=== PATIENT | male | born 1985 | race Caucasian/White ===

== ENCOUNTER 2020-10-26 16:04 | Emergency (ER) | payer OTHER ==
[2020-10-26 16:16] VITALS: RESP 18; TEMP 98
[2020-10-26] MEDS ORDERED: LORazepam 2 MG/ML INJ IM STA (16:36)
--- NOTE | 2020-10-26 16:42 | ED ---
General Adult HPI - General Chief complaint: Psychiatric Symptoms Stated complaint: mental health Time Seen by Provider: 10/26/20 16:17 Source: patient Mode of arrival: ambulatory Limitations: no limitations - History of Present Illness Initial comments: 25-year-old male presents to the emergency room for a chief complaint of "psychotic break". Patient is feeling that he is having a psychotic break. Mother reports that he has had a lot going on for him between losing his job, losing his house, and getting from his . He apparently went on a trip with his stepfather that caused him to have a psychotic break. Mother reports he has threatened to harm himself. Patient is denying any of these thoughts today. Patient denies any suicidal or homicidal thoughts at the time.Patient has no other complaints at this time including shortness of breath, chest pain, abdominal pain, nausea or vomiting, headache, or visual changes. - Related Data Previous Rx's Medication Instructions Recorded LORazepam [Ativan] 1 mg PO DAILY PRN 2 Days #2 tab 10/26/20 Allergies Allergy/AdvReac Type Severity Reaction Status Date / Time No Known Allergies Allergy Verified 10/26/20 16:16 Review of Systems ROS Statement: Those systems with pertinent positive or pertinent negative responses have been documented in the HPI. ROS Other: All systems not noted in ROS Statement are negative. Past Medical History Past Medical History: Asthma Additional Past Medical History / Comment(s): TBI History of Any Multi-Drug Resistant Organisms: None Reported Past Surgical History: No Surgical Hx Reported, Tonsillectomy Past Psychological History: Anxiety, Depression Smoking Status: Current every day smoker Past Alcohol Use History: Occasional Past Drug Use History: Marijuana General Exam Limitations: no limitations General appearance: anxious Head exam: Present: atraumatic, normocephalic, normal inspection Eye exam: Present: normal appearance, PERRL, EOMI. Absent: scleral icterus, conjunctival injection, periorbital swelling ENT exam: Present: normal exam, mucous membranes moist Neck exam: Present: normal inspection, full ROM. Absent: tenderness, meningismus, lymphadenopathy Respiratory exam: Present: normal lung sounds bilaterally. Absent: respiratory distress, wheezes, rales, rhonchi, stridor Cardiovascular Exam: Present: regular rate, normal rhythm, normal heart sounds. Absent: systolic murmur, diastolic murmur, rubs, gallop, clicks Course Vital Signs 10/26/20 16:07 Temperature 98 F Pulse Rate 96 Respiratory 18 Rate Blood Pressure 149/88 O2 Sat by Pulse 98 Oximetry Medical Decision Making - Medical Decision Making Vitals are stable. Patient is well appearing although anxious on presentation. Denying any suicidal or homicidal thoughts. Patient was seen by emergency psychiatric services. It at this and they feel patient is safe for outpatient follow-up as mother is very helpful and supportive to patient. They will be getting him in to [facility]. They will be calling the crisis line tomorrow and [facility] will be made aware by EPS. I will give patient 2 Ativan pills when necessary for anxiety. He will return here for any worsening symptoms. - Lab Data Lab Results 10/26/20 Range/Units 16:59 Urine Opiates Screen Not Detected (NotDetected) Ur Oxycodone Screen Not Detected (NotDetected) Urine Methadone Screen Not Detected (NotDetected) Ur Propoxyphene Screen Not Detected (NotDetected) Ur Barbiturates Screen Not Detected (NotDetected) U Tricyclic Antidepress Not Detected (NotDetected) Ur Phencyclidine Scrn Not Detected (NotDetected) Ur Amphetamines Screen Not Detected (NotDetected) U Methamphetamines Scrn Not Detected (NotDetected) U Benzodiazepines Scrn Not Detected (NotDetected) Urine Cocaine Screen Not Detected (NotDetected) U Marijuana (THC) Screen Detected H (NotDetected) Disposition Clinical Impression: Adjustment reaction Disposition: HOME SELF-CARE Condition: Good Instructions (If sedation given, give patient instructions): Depression (ED), Suicide Prevention (ED) Additional Instructions: Please call [facility] crisis line tomorrow. Please follow up closely with [facility]. If patient has any worsening symptoms return to the emergency room. Prescriptions: LORazepam [Ativan] 1 mg PO DAILY PRN 2 Days #2 tab PRN Reason: Anxiety Is patient prescribed a controlled substance at d/c from ED?: No Referrals: Nonstaff,Physician [Primary Care Provider] - 1-2 days Time of Disposition: 18:22
[2020-10-26 17:23] LABS: Amphetamine Screen,Urine Not Detected (NotDetected); Benzodiazepines Screen,Urine Not Detected (NotDetected); Cocaine Screen,Urine Not Detected (NotDetected); Methadone Screen, Urine Not Detected (NotDetected); Opiate Screen,Urine Not Detected (NotDetected); Phencyclidine Screen,Urine Not Detected (NotDetected); Tricyclic Antidepressant,Urine Not Detected (NotDetected); Urn Cannabinoid Scrn Detected (NotDetected)
[2020-10-26 17:24] LABS: Barbiturate Screen,Urine Not Detected (NotDetected); Oxycodone Screen, Urine Not Detected (NotDetected)
[2020-10-26] MEDS ORDERED: LORazepam 1 MG TAB PO STA (18:23)
[2020-10-26 18:35] VITALS: BP 130/88; PULSE 88
== END 2020-10-26 18:35 | disposition home or self-care (01) ==
LOC: EDBD → EC 16:04
DX: F43.22 Adjustment disorder with anxiety (principal); J45.909 Unspecified asthma, uncomplicated; F17.200 Nicotine dependence, unspecified, uncomplicated
CPT/HCPCS: 82075; 80306; 99284; 96372; J2060

== ENCOUNTER 2020-11-04 15:57 | Inpatient (IN) | payer MEDICAID, OTHER ==
--- NOTE | 2020-11-04 17:54 | ED ---
General Adult HPI - General Chief complaint: Psychiatric Symptoms Stated complaint: EPS eval Time Seen by Provider: 11/04/20 16:00 Source: patient, family, EMS, RN notes reviewed, old records reviewed Mode of arrival: EMS Limitations: no limitations - History of Present Illness Initial comments: This is a 35-year-old male who is been petition by his mother because he has been acting extremely paranoid making claims that aren't true and constantly telling people he is going to commit suicide. Patient sent his mother picture of a gun that he is going to use. Patient currently denies this and states she doesn't have any idea why she is here. According to the petition patient is drinking more has been more paranoid and continues to tell everyone that he is suicidal. - Related Data Home Medications Medication Instructions Recorded Confirmed busPIRone HCL [Buspar] 7.5 mg PO HS 11/04/20 11/05/20 traZODone HCL [Desyrel] 100 mg PO HS 11/04/20 11/05/20 Allergies Allergy/AdvReac Type Severity Reaction Status Date / Time No Known Allergies Allergy Verified 11/05/20 05:11 Review of Systems ROS Statement: Those systems with pertinent positive or pertinent negative responses have been documented in the HPI. ROS Other: All systems not noted in ROS Statement are negative. Past Medical History Past Medical History: Asthma Additional Past Medical History / Comment(s): TBI History of Any Multi-Drug Resistant Organisms: None Reported Past Surgical History: No Surgical Hx Reported, Tonsillectomy Past Psychological History: Anxiety, Depression Smoking Status: Current every day smoker Past Alcohol Use History: Occasional Past Drug Use History: Marijuana General Exam - General Exam Comments Initial Comments: GENERAL: Patient is well-developed and well-nourished. Patient is nontoxic and well- hydrated and is in no acute distress. ENT: Neck is soft and supple. No significant lymphadenopathy is noted. Oropharynx is clear. Moist mucous membranes. Neck has full range of motion without eliciting any pain.were felt. EYES: The sclera were anicteric and conjunctiva were pink and moist. Extraocular movements were intact and pupils were equal round and reactive to light. Eyelids were unremarkable. PULMONARY: Unlabored respirations. Good breath sounds bilaterally. No audible rales rhonchi or wheezing was noted. CARDIOVASCULAR: There is a regular rate and rhythm without any murmurs gallops or rubs. ABDOMEN: Soft and nontender with normal bowel sounds. SKIN: Skin is clear with no lesions or rashes and otherwise unremarkable. NEUROLOGIC: Patient is alert and oriented x3. Cranial nerves II through XII are grossly intact. Motor and sensory are also intact. Normal speech, volume and content. Symmetrical smile. MUSCULOSKELETAL: Normal extremities with adequate strength and full range of motion. LYMPHATICS: No significant lymphadenopathy is noted PSYCHIATRIC: Patient denies any suicidal ideations. Patient denies any when he is suicidal. 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 Glover taking over the care of this patient at 9 - Lab Data Result diagrams: 11/06/20 08:44 11/06/20 08:44 Lab Results 11/04/20 11/05/20 Range/Units 19:43 01:34 Urine Opiates Screen Not Detected (NotDetected) Ur Oxycodone Screen Not Detected (NotDetected) Urine Methadone Screen Not Detected (NotDetected) Ur Propoxyphene Screen Not Detected (NotDetected) Ur Barbiturates Screen Not Detected (NotDetected) U Tricyclic Antidepress Not Detected (NotDetected) Ur Phencyclidine Scrn Not Detected (NotDetected) Ur Amphetamines Screen Not Detected (NotDetected) U Methamphetamines Scrn Not Detected (NotDetected) U Benzodiazepines Scrn Not Detected (NotDetected) Urine Cocaine Screen Not Detected (NotDetected) U Marijuana (THC) Screen Detected H (NotDetected) Coronavirus (PCR) Not Detected (Not Detectd) Disposition Clinical Impression: Psychosis Disposition: ADMITTED IP TO THIS HOSP
[2020-11-04] MEDS ORDERED: NICOTINE 21MG/24HR PATCH TRANSDERM STA (18:12)
[2020-11-04 20:06] LABS: Amphetamine Screen,Urine Not Detected (NotDetected); Barbiturate Screen,Urine Not Detected (NotDetected); Benzodiazepines Screen,Urine Not Detected (NotDetected); Cocaine Screen,Urine Not Detected (NotDetected); Methadone Screen, Urine Not Detected (NotDetected); Opiate Screen,Urine Not Detected (NotDetected); Oxycodone Screen, Urine Not Detected (NotDetected); Phencyclidine Screen,Urine Not Detected (NotDetected); Tricyclic Antidepressant,Urine Not Detected (NotDetected); Urn Cannabinoid Scrn Detected (NotDetected)
[2020-11-05] MEDS ORDERED: MAGNESIUM HYDROXIDE 2,400 MG/10 ML CUP PO PRN (04:19)
[2020-11-05] MEDS ORDERED: MAG HYDROX/AL HYDROX/SIMETH 30 ML CUP PO PRN (04:19)
[2020-11-05] MEDS ORDERED: ACETAMINOPHEN TAB 325 MG TAB PO PRN (04:19)
[2020-11-05] MEDS ORDERED: LORazepam 2 MG/ML INJ IM PRN (04:22)
[2020-11-05] MEDS ORDERED: HALOPERIDOL LACTATE 5 MG/ML 1 ML VIAL IM PRN (04:23)
[2020-11-05] MEDS: LORazepam 1 MG TAB PO PRN ×2 (04:34→13:24)
[2020-11-05] MEDS: NICOTINE 21MG/24HR PATCH TRANSDERM SCH (09:39)
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
[2020-11-05] MEDS: NICOTINE POLACRILEX 2 MG GUM BUCCAL PRN ×2 (13:49→18:24)
[2020-11-05] MEDS: LITHIUM CARBONATE 300 MG CAP PO SCH (20:33)
[2020-11-05] MEDS: traZODone HCL 100 MG TAB PO SCH (20:33)
[2020-11-05] MEDS: busPIRone HCl 5 MG TAB PO SCH (20:33)
[2020-11-05] MEDS ORDERED: busPIRone HCl 5 MG TAB PO SCH (21:00)
[2020-11-06] MEDS: busPIRone HCl 5 MG TAB PO SCH ×2 (08:15→19:36)
[2020-11-06] MEDS: NICOTINE 21MG/24HR PATCH TRANSDERM SCH (08:16)
[2020-11-06] MEDS: LITHIUM CARBONATE 300 MG CAP PO SCH (08:16)
[2020-11-06] MEDS: NICOTINE POLACRILEX 2 MG GUM BUCCAL PRN ×2 (08:18→11:22)
[2020-11-06 09:26] LABS: Basophils # (A) 0.1 k/uL (0-0.2); Basophils % (A) 1 %; Eosinophils # (A) 0.2 k/uL (0-0.7); Eosinophils % (A) 2 %; HCT 54.4 % (39.0-53.0); HGB 18.3 gm/dL (13.0-17.5); Lymphocytes # (A) 1.5 k/uL (1.0-4.8); Lymphocytes % (A) 20 %; MCH 33.7 pg (25.0-35.0); MCHC 33.7 g/dL (31.0-37.0); MCV 100.1 fL (80.0-100.0); Macrocytosis Slight; Mean Platelet Volume 7.4; Monocytes # (A) 0.4 k/uL (0-1.0); Monocytes % (A) 5 %; Neutrophils # (A) 5.2 k/uL (1.3-7.7); Neutrophils % (A) 70 %; Platelet Count 213 k/uL (150-450); RBC 5.43 m/uL (4.30-5.90); RDW 14.6 % (11.5-15.5); WBC 7.4 k/uL (3.8-10.6)
[2020-11-06 09:43] LABS: ALT 24 U/L (4-49); AST 37 U/L (17-59); African American GFR (CKD) >90 (>60 ml/min/1.73 sqM); Albumin 3.9 g/dL (3.5-5.0); Alkaline Phosphatase 77 U/L (38-126); Anion Gap 6 mmol/L; Blood Urea Nitrogen 6 mg/dL (9-20); Carbon Dioxide 30 mmol/L (22-30); Chloride 103 mmol/L (98-107); Glucose 105 mg/dL (74-99); Non-African American GFR(CKD) >90 (>60 ml/min/1.73 sqM); Potassium 3.6 mmol/L (3.5-5.1); Sodium 139 mmol/L (137-145); Total Bilirubin 2.1 mg/dL (0.2-1.3); Total Protein 6.6 g/dL (6.3-8.2)
[2020-11-06] MEDS: LORazepam 1 MG TAB PO PRN ×2 (11:22→23:24)
[2020-11-06] MEDS ORDERED: ARIPiprazole 5 MG TAB PO STA (11:22)
--- NOTE | 2020-11-06 11:37 | P.PN ---
Progress Note - Text Progress Note Date: 11/06/20 Interval History: Patient was seen wandering the hallways and was directable and agreeable to speak with sba underwriter in the office. The patient continues to express that he does not need to be admitted to an inpatient psychiatric unit and that this appears to be an excessive response to his actions. Collateral information was obtained by the patient's mother reports that the patient has had a pattern of behavior ever since the start of the pandemic where he experienced much more mood swings, irritability, and verbalized threats to harm himself or others. The patient when confronted with this information. He denies that he had any intention to do so and that he was only saying these things as a reaction to how his mother and his were treating him. Currently, the patient is denying any suicidal or homicidal ideation, intention, and/or plan. He is not reporting any auditory or visual hallucinations. He is denying any paranoia or delusions. Patient reports that he was able to sleep well last night. He denies any issues with his appetite. He remains fixated on discharge. The patient states that he has to be at work on Tuesday because if not, he will loose his job and become homeless. Throughout the interview, the patient continually expresses that he needs to be discharged as he feels like he is no longer an imminent risk of harm to self or others. Mental Status Exam: General Appearance: Patient appears to be stated age is alert, directable, and cooperative. Unkempt and disheveled hair. Normal build. Behavior: Patient is calmly seated without any agitated behavior. Psychomotor activity is elevated. Eye contact is appropriate. Speech: Patient's speech is hyperverbal, rapid at times, circumstantial. Mood/Affect: Mood is "feeling ready to go," affect is expansive, irritable, and intense. Suicidality/Homicidality: Patient denies any suicidal or homicidal ideation, intention, and/or plan. Perceptions: The patient denies any auditory or visual hallucinations. Though content/process: There is no evidence of any delusional thought content and thought process is linear and goal-directed. Memory and concentration: AOX3, grossly intact for the purposes of this session Judgment and insight: Improving mildly Vital Signs Temp 98.9 F 11/05/20 04:00 Pulse 99 11/05/20 04:00 Resp 18 11/05/20 04:00 BP 145/101 11/05/20 04:00 Pulse Ox 98 11/05/20 04:00 Assessment Bipolar disorder, unspecified, depressed episode Alcohol use disorder Nicotine dependence Plan: -Patient continues to meet criteria for inpatient psychiatric admission for symptom stabilization and safety. Patient has signed adult voluntary form. Consider petition and certification if the patient is nonadherent with treatment or files 72 hour notice at this time. -Medications: Increase lithium to 450 mg by mouth twice a day for mood stabilization Continue BuSpar 7.5 mg by mouth twice a day for anxiety Continue trazodone 100 mg by mouth at bedtime for depression/insomnia Start Abilify 5 mg by mouth daily for mood stabilization -When necessary Ativan and Geodon for agitation/aggression. -NRT - nicotine patch -SW on board for discharge planning. Encouraged the patient to participate in milieu.
[2020-11-06 17:56] LABS: Hemoglobin A1C 4.8 % (4.0-6.0)
[2020-11-06] MEDS: traZODone HCL 100 MG TAB PO SCH (19:37)
[2020-11-06] MEDS: LITHIUM CARBONATE 150 MG CAP PO SCH (19:37)
[2020-11-07] MEDS: NICOTINE 21MG/24HR PATCH TRANSDERM SCH (08:28)
[2020-11-07] MEDS: busPIRone HCl 5 MG TAB PO SCH ×2 (08:28→21:13)
[2020-11-07] MEDS: LITHIUM CARBONATE 150 MG CAP PO SCH (08:28)
[2020-11-07] MEDS ORDERED: ARIPiprazole 10 MG TAB PO SCH (09:00)
[2020-11-07] MEDS: NICOTINE POLACRILEX 2 MG GUM BUCCAL PRN ×2 (09:48→14:19)
--- NOTE | 2020-11-07 12:18 | P.PN ---
Progress Note - Text Progress Note Date: 11/07/20 Interval History: Patient was lying in bed and was agreeable to this web content writer in the office. Pat ient not endorsing any suicidal or homicidal ideation, intention, and/or plan. He is denying any auditory or visual hallucinations. He reports no paranoia or other delusions. Patient does express more understanding today and he needs to control his anger and acknowledges that he has acted excessively with threats of harming himself or others. Patient expresses that this is primarily involving his relationship with his which she believes is beyond repair. He vehemently denies any intention to hurt himself or his . The patient states that he wants to comply with treatment and will show his mother and his outpatient doctors that he can follow up with treatment and take the medications as directed. He is not reporting any issues with sleep or appetite. He is reporting no significant side effects of his medications. He is agreeable to transitioning to [facility]. Mental Status Exam: General Appearance: Patient appears to be stated age is alert, directable, and cooperative. Unkempt and disheveled hair. Normal build. Behavior: Patient is calmly seated without any agitated behavior. Normal psychomotor activity. Eye contact is appropriate. Speech: Patient's speech is spontaneous, normal rate, tone, and volume. Mood/Affect: Mood is "feeling okay." Affect is euthymic with appropriate range. Suicide/Homicide: Patient vehemently denies any suicidal or homicidal ideation, intent, and/or plan. Perceptions: The patient denies any auditory or visual hallucinations. Though content/process: There is no evidence of any delusional thought content and thought process is linear and goal-directed. Memory and concentration: AOX3, grossly intact for the purposes of this session Judgment and insight: Improving mildly Vital Signs Temp 96.9 F L 11/07/20 06:38 Pulse 91 11/07/20 08:29 Resp 18 11/07/20 06:38 BP 121/86 11/07/20 08:29 Pulse Ox 98 11/05/20 04:00 Assessment Bipolar disorder, unspecified, depressed episode Alcohol use disorder Nicotine dependence Plan: -Patient continues to meet criteria for inpatient psychiatric admission for symptom stabilization and safety. Patient has signed adult voluntary form. -Medications: Increase lithium to 600 mg by mouth twice a day for mood stabilization. [place] level to be drawn Tuesday. Continue BuSpar 7.5 mg by mouth twice a day for anxiety Continue trazodone 100 mg by mouth at bedtime for depression/insomnia Increase Abilify to 15 mg by mouth daily with plans to transition the patient to Abilify [facility] Tuesday. -When necessary Ativan and Haldol for agitation/aggression. -NRT - nicotine patch -SW on board for discharge planning. Encouraged the patient to participate in milieu.
[2020-11-07] MEDS: LORazepam 1 MG TAB PO PRN (17:07)
[2020-11-07] MEDS: traZODone HCL 100 MG TAB PO SCH (21:13)
[2020-11-07] MEDS: LITHIUM CARBONATE 300 MG CAP PO SCH (21:13)
--- NOTE | 2020-11-08 04:23 | P.MDCNMH ---
History of Present Illness H&P Date: 11/07/20 Chief Complaint: Medical evaluation 35-year-old male with depression Patient denies any medical concerns at this point he denies any fevers chills upper respiratory infection symptoms abdominal pain nausea vomiting or diarrhea He denies any suicidal or homicidal ideation at this time Per ER note seems like he was brought here due to paranoid behavior and suicidal ideation which currently patient denies Review of Systems Pertinent positives as noted in HPI. All other systems were reviewed and are negative Past Medical History Past Medical History: Asthma Additional Past Medical History / Comment(s): TBI History of Any Multi-Drug Resistant Organisms: None Reported Past Surgical History: No Surgical Hx Reported, Tonsillectomy Past Psychological History: Anxiety, Depression Smoking Status: Current every day smoker Past Alcohol Use History: Occasional Past Drug Use History: Marijuana - Past Family History Family Family Medical History: No Reported History Medications and Allergies Home Medications Medication Instructions Recorded Confirmed Type busPIRone HCL [Buspar] 7.5 mg PO HS 11/04/20 11/05/20 History traZODone HCL [Desyrel] 100 mg PO HS 11/04/20 11/05/20 History Allergies Allergy/AdvReac Type Severity Reaction Status Date / Time No Known Allergies Allergy Verified 11/05/20 05:11 Physical Exam Vitals: Vital Signs Temp Pulse Resp BP 11/07/20 08:29 91 121/86 11/07/20 06:38 96.9 F L 59 L 18 110/68 Constitutional: No acute distress, conversant, pleasant Eyes: Anicteric sclerae, moist conjunctiva, Pupils equal round reactive to light ENMT: NC/AT Oropharynx clear, no erythema, or exudates Neck: Supple, FROM, no masses, or JVD No carotid bruits No thyromegaly Lungs: Clear to auscultation Clear to percussion Normal respiratory effort, no accessory muscle use Cardiovascular: Heart regular in rate and rhythm, No murmurs, gallops, or rubs No peripheral edema Abdominal: Soft Nontender, no guarding, rebound or rigidity Abdomen moving with respiration Normoactive bowel sounds No hepatomegaly, No splenomegaly No palpable mass No abdominal wall hernia noted Skin: Normal temperature, tone, texture, turgor No induration No subcutaneous nodules No rash, lesions No ulcers Extremities: No digital cyanosis No clubbing Pedal pulses intact and symmetrical Radial pulses intact and symmetrical No calf tenderness Psychiatric: Alert and oriented to person, place and time Neuro Muscles Strength 5/5 in all 4 extremities Sensation to light touch grossly present throughout Cranial nerves II-XII grossly intact No focal sensory deficits Lymphatics: no palpable cervical or supraclavicular , or inguinal lymph nodes Cranial Nerve Examination - Cranial Nerves Cranial Nerve II- Optic: Intact Cranial Nerve III- Oculomotor: Intact Cranial Nerve IV- Trochlear: Intact Cranial Nerve V- Trigeminal: Intact Cranial Nerve - Abducens: Intact Cranial Nerve VII- Facial: Intact Cranial Nerve VIII- Auditory: Intact Cranial Nerve IX- Glossopharyngeal: Intact Cranial Nerve X- Vagus: Intact Cranial Nerve XI- Accessory: Intact Cranial Nerve XII- Hypoglossal: Intact Results CBC & Chem 7: 11/06/20 08:44 11/06/20 08:44 Assessment and Plan Assessment: Paranoid behavior and suicidal ideation Management per psych Patient denies any medical concerns Labs reviewed some degree of macrocytosis no anemia Thank you for allowing us to participate in the care of this patient. We will follow peripherally. Do not hesitate to contact us with questions. Someone can be reached from the [facility] hospitalist group at all hours of the day at [phone].
[2020-11-08] MEDS: busPIRone HCl 5 MG TAB PO SCH ×2 (07:49→20:33)
[2020-11-08] MEDS: ARIPiprazole 15 MG TAB PO SCH (07:50)
[2020-11-08] MEDS: LITHIUM CARBONATE 300 MG CAP PO SCH ×2 (07:50→20:34)
[2020-11-08] MEDS: NICOTINE 21MG/24HR PATCH TRANSDERM SCH (08:30)
[2020-11-08] MEDS: NICOTINE POLACRILEX 2 MG GUM BUCCAL PRN (08:30)
--- NOTE | 2020-11-08 15:23 | P.PN ---
Progress Note - Text Progress Note Date: 11/08/20 Clinical Problems: Shanna disorder unspecified, depressed state, alcohol use disorder, tobacco use disorder Interim history: I reviewed the medical record and interviewed the patient. He is a 35-year-old male admitted to psychiatric unit involuntarily with suicidal ideation. According to the petition completed a his he threatened to shoot himself. He alleged that his told told him that the divorce he will "never see their children again." He minimizes sever ity of the depression or the suicidal ideation. He alleged that he overreacted when his threatened to withhold custody of their children. During this interview he denied having thoughts of or suicide. He denied experiencing homicidal ideation. He looks forward to returning home and returning to work. He knows that his will not be withhold children from him without a decision by the courts. He has been attending therapeutic groups and activities. He slept 5 hours last night. He denied side effects to his current psychotropic medications-Abilify, BuSpar, and lithium carbonate. Mental status exam: He presented as a casually groomed 35-year-old male who was pleasant on approach. He made eye contact and attended the interview. He had no prominent physical abnormalities. He had a blunted facial expression. He was alert and oriented to person, place and time. He has slight psychomotor retardation but no abnormal involuntary movements. Speech was spont aneous with normal rate and rhythm. His affect was blunted but stable and appropriate. He denied suicidal ideation, wishes homicidal ideation. He denied feeling hopeless, helpless or worthless. He did not ruminate about his divorce or separation from his . He did not express ideas reference, paranoid ideation or delusions. His thinking was abstract and associations were coherent, logical and goal directed. He denied hallucinations did not appear to be responding to internal stimuli. Assessment: He is moderately mentally ill and much improved from admission. He is denying adverse effects to his current psychotropic medications. Plan: Continue inpatient treatment. Plan for discharge on 11/10/2020. Safety precautions. Continue Abilify 15 mg by mouth daily; to start Abilify Maintena 400 mg IM on 11/09/2020, BuSpar 7.5 mg twice a day and lithium carbonate 600 mg twice a day; lithium level pending and trazodone 50 mg at bedtime. Continue Haldol and/or Ativan for anxiety, agitation acute psychosis. Habitrol for smoking cessation. Encouraged continued participation in therapeutic groups and activities. Evaluate clinical status response to treatment daily basis.
[2020-11-08] MEDS: traZODone HCL 100 MG TAB PO SCH (20:34)
[2020-11-08] MEDS: LORazepam 1 MG TAB PO PRN (22:23)
[2020-11-09] MEDS: ARIPiprazole 15 MG TAB PO SCH (08:00)
[2020-11-09] MEDS: LITHIUM CARBONATE 300 MG CAP PO SCH ×2 (08:00→20:20)
[2020-11-09] MEDS ORDERED: ARIPiprazole IM 400 MG VIAL (NO COST) PHARMACY STOCK IM ONE (08:00)
[2020-11-09] MEDS: busPIRone HCl 5 MG TAB PO SCH ×2 (08:00→20:20)
[2020-11-09] MEDS: NICOTINE 21MG/24HR PATCH TRANSDERM SCH (08:00)
--- NOTE | 2020-11-09 15:10 | P.PN ---
Progress Note - Text Progress Note Date: 11/09/20 Clinical Problems: Shanna disorder unspecified, depressed state, alcohol use disorder, tobacco use disorder Interim history: I reviewed the medical record and interviewed the patient. He requested to be discharged today. He alleged that his mother would only be able to pick him up today. His psychiatrist told me that the plan was discharge from early next week. I suspected that he speak with the psychiatrist tomorrow to finalize discharge arrangements with his attending psychiatrist. During this interview he denied having thoughts of or suicide. He denied experiencing homicidal ideation. He looks forward to returning home and returning to work. He has been attending therapeutic groups and activities. He slept 7 hours last night. He denied side effects to his current psychotropic medications-Abilify, BuSpar, and lithium carbonate. Mental status exam: He presented as a casually groomed 35-year-old male who was pleasant on approach. He made eye contact and attended the interview. He had no prominent physical abnormalities. He had a blunted facial expression. He was alert and oriented to person, place and time. He has slight psychomotor retardation but no abnormal involuntary movements. Speech was spontaneous with normal rate and rhythm. His affect was bright, stable and appropriate. He denied suicidal ideation, wishes homicidal ideation. He denied feeling hopeless, helpless or worthless. He did not ruminate about his divorce or separation from his . He did not express ideas reference, paranoid ideation or delusions. His thinking was abstract and associations were coherent, logical and goal directed. He denied hallucinations did not appear to be responding to internal stimuli. Assessment: He is moderately mentally ill and much improved from admission. He is denying adverse effects to his current psychotropic medications. Plan: Continue inpatient treatment. Plan for discharge on 11/10/2020. Safety precautions. Continue Abilify 15 mg by mouth daily; to start Abilify Maintena 400 mg IM on 11/09/2020, BuSpar 7.5 mg twice a day and lithium carbonate 600 mg twice a day; lithium level pending and trazodone 50 mg at bedtime. Continue Haldol and/or Ativan for anxiety, agitation acute psychosis. Habitrol for smoking cessation. Encouraged continued participation in therapeutic groups and activities. Evaluate clinical status response to treatment daily basis.
[2020-11-09] MEDS: traZODone HCL 100 MG TAB PO SCH (20:20)
[2020-11-09] MEDS: LORazepam 1 MG TAB PO PRN (20:22)
[2020-11-10 07:13] VITALS: BP 122/72; PULSE 78; RESP 18; TEMP 97.6
[2020-11-10] MEDS: NICOTINE 21MG/24HR PATCH TRANSDERM SCH (08:47)
[2020-11-10] MEDS: ARIPiprazole 15 MG TAB PO SCH (08:48)
[2020-11-10] MEDS: busPIRone HCl 5 MG TAB PO SCH (08:48)
[2020-11-10] MEDS: LITHIUM CARBONATE 300 MG CAP PO SCH (08:48)
--- NOTE | 2020-11-10 10:01 | P.DS ---
Providers Date of admission: 11/05/20 03:32 Expected date of discharge: 11/10/20 Attending physician: Catalino Chauhan MD Consults: 11/05/20 04:19 Consult Physician Routine Consulting Provider: Elayne Ibarra Consult Reason/Comments: For H & P for Medical Follow Up Do you want consulting provider notified?: Yes Primary care physician: Physician Nonstaff - Discharge Diagnosis(es) (1) Bipolar 2 disorder, major depressive episode Current Visit: Yes Status: Acute Priority: High (2) Alcohol use disorder Current Visit: Yes Status: Chronic Priority: Medium (3) Nicotine dependence Current Visit: Yes Status: Chronic Priority: Medium Hospital Course: Admission HPI: Patient is a , unemployed, 35-year-old male admitted for suicidal ideation Patient presented to the hospital, under petition by his mother for suicidal threats, paranoia, and a lack of ability to care for himself. As per petition, the patient has had paranoid thinking, not doing basic self-care, refusing to eat, using alcohol and other substances in an attempt to end his life. The patient had threats to shoot himself. He demonstrated above behavior to his and myself." The patient did text his a picture of himself with a gun stating that he wanted to shoot himself with the police to shoot him. The patient reports "my left me and took the kids last Tuesday." He reports multiple stressors including separation from his , financial stressors, his current living situation in an in a campground, and his employment. He does endorse significant symptoms of depression including generalized sadness, anhedonia, and has verbalized suicidal threats. The patient vehemently denies that he was intending to go forward with any of his suicidal threats. He denies any prior times at suicide. He reports that when police came to go get him, he handed the gun over to them without any incident. The patient states that he was scheduled to go to [facility] for mental health help and that he was seeking treatment because of the ongoing stressors regarding his relationship with his . The patient further reports that he has a long history of difficulty sleeping. He states that he has gone 3-4 days with little to no sleep. 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 He reports that with trazodone he receives 4-5 hours of sleep and only 2-3 hours of sleep without any trazodone. The patient does admit to mood swings but denies any impulsivity, racing thoughts, auditory hallucinations, visual hallucinations, or overt delusional thoughts. Patient states that he has been previously admitted to an inpatient psychiatric hospital when he was 12 and 14 years old. The patient reports a history of depression and anxiety. The patient is only able to recall his current regimen of trazodone and BuSpar for psychotropic medications. Patient denies any psychiatric outpatient follow-up. The patient has been following up with his primary care provider for mental health help. He states that he was trying to go to [facility] prior to this hospitalization. He denies any prior attempts at suicide. Hospital course: Upon admission to the unit patient was initially oppositional and displayed poor insight and judgment. The patient believes that his actions did not warrant a psychiatric hospitalization, stating that he felt justified in his threats of harm to self or others. Patient was however directable and agreeable to commence treatment. The patient eventually was agreeable and was converted to a voluntary admission. The patient began taking his medications and followed up with treatment recommendations. Confirmation that the firearms removed from his person was also obtained. The patient participated both individual and milieu therapies. He was adherent with his medications and reported no significant side effects. The patient was started on a regimen of Abilify and lithium to address his impulsivity, mood lability, and other hypomanic symptoms. The patient showed gradual improvement in regards to these target symptoms and developed improved insight and judgment. On the day of discharge, the patient is not reporting any suicidal or homicidal ideation, intention, and/or plan. He is denying any auditory or visual hallucinations. He reports no paranoia or other delusions. The patient denies any access to firearms or other weapons. He does report that he is looking for to going back to work. He states that although he is going through a difficult separation, he does realize that his response to the situation was drastic and dangerous. He expresses that he will exercise better coping skills and expresses a strong desire to follow-up with his outpatient appointments. The patient was administered Abilify maintena on 11/09/2020 to ensure medication adherence. Stonecrest level was also obtained and was found to be 1.1. The patient was counseled at length on the medications and their side effects. He was encouraged to follow-up with his outpatient appointments for both mental health and for primary care. Furthermore, the patient does have a significant history of alcohol use disorder and was counseled at length on abstaining from all substances including alcohol and marijuana. The patient was offered inpatient rehabilitation referral for alcohol use disorder but declined. Prior to discharge, a family meeting will be arranged as a short answer questions and ensure safety. Mental status exam: General Appearance: Patient appears to be stated age is alert, pleasant, and cooperative. Patient is in no acute distress and has fair hygiene and grooming. Behavior: Patient is calmly seated without any agitated behavior. Psychomotor activity is normal. Eye contact is appropriate. Speech: Patient's speech is fluent and nonpressured. Mood/Affect: Patient reports their mood is "much better", affect is congruent and euthymic. Suicidality/Homicidality: The patient denies any suicidal or homicidal ideation, intention, social plan. Perceptions: Patient denies any auditory or visual hallucinations. Though content/process: There is no evidence of any delusional thought content and thought process is linear and goal-directed. The patient is future oriented. Memory and concentration: AOX3, grossly intact for the purposes of this session. Can spell "WORLD" backwards correctly. Judgment and insight: Improved Vital Signs Temp 97.6 F 11/10/20 07:12 Pulse 78 11/10/20 07:12 Resp 18 11/10/20 07:12 BP 122/72 11/10/20 07:12 Pulse Ox 98 11/05/20 04:00 Intake & Output 11/09/20 11/10/20 11/10/20 18:59 06:59 18:59 Weight 84.4 kg Impression: Bipolar disorder, type 2, depressed episode Alcohol use disorder Nicotine dependence Plan: -Continue with discharge today as patient has improved and stabilized psychiatrically and is not currently an imminent threat to himself and/or others. Patient will remain at chronically elevated risk for harm to self and/or others due to his alcohol use and nonmodifiable risk factors of ongoing marital issues and gender. -Continue medications: Abilify maintena 400 mg IM every monthly, next dose due on 12/07/2020. Continue oral Abilify medication 15 mg daily for 14 days. Stonecrest 600 mg by mouth twice a day for mood stabilization BuSpar 7.5 mg by mouth twice a day for anxiety Trazodone 100 mg by mouth at bedtime for insomnia Hospital patches for tobacco cessation. -Patient was counseled on the need for medication compliance and appropriate follow-up at mental health and also primary care for medical issues. Patient verbalized understanding and agreed. -Social work to arrange for and conduct family meeting to ensure safety upon discharge and answer any questions/concerns. Social work also [facility] with [facility] for psychiatric care along with follow up with primary care provider. -Patient counseled on abstaining from recreational drugs and marijuana and alcohol. Was informed/educated on the adverse effects on their physical and mental health. Patient verbally agreed and understood. Patient was offered substance abuse treatment however declined at this time. -Patient was instructed to return to the hospital or seek immediate medical care if their psychiatric or medical symptoms do worsen or reoccur. -Psychoeducation and supportive therapy provided to patient. Risks and benefits of pharmacological treatment versus the risks and benefits of nontreatment weight and discussed. Informed consent discussion held. Common side effects of psychotropics discussed such as, but not limited to headache, GI disturbance, sexual dysfunction, movement disorders, sedation, and orthostatic hypotension. Life threatening and blackbox warnings of prescribed medications also discussed. Potential risks of operating a vehicle or heavy machinery discussed with patient at length. Advised on importance of compliance and a reliable and responsible manner. Patient advised to review FDA consumer labeling of all medications prior to taking. Patient verbalized understanding of potential risks, and agrees with current treatment plan. Patient advised to medically contact physician/emergency personnel if any acute changes in condition occur. Laboratory Results WBC 7.4 k/uL (3.8-10.6) 11/06/20 08:44 RBC 5.43 m/uL (4.30-5.90) 11/06/20 08:44 Hgb 18.3 gm/dL (13.0-17.5) H 11/06/20 08:44 Hct 54.4 % (39.0-53.0) H 11/06/20 08:44 MCV 100.1 fL (80.0-100.0) H 11/06/20 08:44 MCH 33.7 pg (25.0-35.0) 11/06/20 08:44 MCHC 33.7 g/dL (31.0-37.0) 11/06/20 08:44 RDW 14.6 % (11.5-15.5) 11/06/20 08:44 Plt Count 213 k/uL (150-450) 11/06/20 08:44 MPV 7.4 11/06/20 08:44 Neutrophils % 70 % 11/06/20 08:44 Lymphocytes % 20 % 11/06/20 08:44 Monocytes % 5 % 11/06/20 08:44 Eosinophils % 2 % 11/06/20 08:44 Basophils % 1 % 11/06/20 08:44 Neutrophils # 5.2 k/uL (1.3-7.7) 11/06/20 08:44 Lymphocytes # 1.5 k/uL (1.0-4.8) 11/06/20 08:44 Monocytes # 0.4 k/uL (0-1.0) 11/06/20 08:44 Eosinophils # 0.2 k/uL (0-0.7) 11/06/20 08:44 Basophils # 0.1 k/uL (0-0.2) 11/06/20 08:44 Macrocytosis Slight 11/06/20 08:44 Sodium 139 mmol/L (137-145) 11/06/20 08:44 Potassium 3.6 mmol/L (3.5-5.1) 11/06/20 08:44 Chloride 103 mmol/L (98-107) 11/06/20 08:44 Carbon Dioxide 30 mmol/L (22-30) 11/06/20 08:44 Anion Gap 6 mmol/L 11/06/20 08:44 BUN 6 mg/dL (9-20) L 11/06/20 08:44 Creatinine 0.71 mg/dL (0.66-1.25) 11/06/20 08:44 Est GFR (CKD-EPI)AfAm >90 (>60 ml/min/1.73 sqM) 11/06/20 08:44 Est GFR (CKD-EPI)NonAf >90 (>60 ml/min/1.73 sqM) 11/06/20 08:44 Glucose 105 mg/dL (74-99) H 11/06/20 08:[address] Glu mg/dL 91 11/06/20 08:44 Hemoglobin A1c 4.8 % (4.0-6.0) 11/06/20 08:44 Calcium 10.0 mg/dL (8.4-10.2) 11/06/20 08:44 Total Bilirubin 2.1 mg/dL (0.2-1.3) H 11/06/20 08:44 AST 37 U/L (17-59) 11/06/20 08:44 ALT 24 U/L (4-49) 11/06/20 08:44 Alkaline Phosphatase 77 U/L (38-126) 11/06/20 08:44 Total Protein 6.6 g/dL (6.3-8.2) 11/06/20 08:44 Albumin 3.9 g/dL (3.5-5.0) 11/06/20 08:44 TSH 2.210 mIU/L (0.465-4.680) 11/06/20 08:44 Urine Opiates Screen Not Detected (NotDetected) 11/04/20 19:43 Ur Oxycodone Screen Not Detected (NotDetected) 11/04/20 19:43 Urine Methadone Screen Not Detected (NotDetected) 11/04/20 19:43 Ur Propoxyphene Screen Not Detected (NotDetected) 11/04/20 19:43 Ur Barbiturates Screen Not Detected (NotDetected) 11/04/20 19:43 U Tricyclic Antidepress Not Detected (NotDetected) 11/04/20 19:43 Ur Phencyclidine Scrn Not Detected (NotDetected) 11/04/20 19:43 Ur Amphetamines Screen Not Detected (NotDetected) 11/04/20 19:43 U Methamphetamines Scrn Not Detected (NotDetected) 11/04/20 19:43 U Benzodiazepines Scrn Not Detected (NotDetected) 11/04/20 19:43 Stonecrest 1.1 mmol/L 11/09/20 09:53 Urine Cocaine Screen Not Detected (NotDetected) 11/04/20 19:43 U Marijuana (THC) Screen Detected (NotDetected) H 11/04/20 19:43 Coronavirus (PCR) Not Detected (Not Detectd) 11/05/20 01:34 Allergies Allergy/AdvReac Type Severity Reaction Status Date / Time No Known Allergies Allergy Verified 11/05/20 05:11 Patient Condition at Discharge: Stable Plan - Discharge Summary Discharge Rx Participant: No New Discharge Prescriptions: New ARIPiprazole IM [Abilify Maintena] 400 mg IM QMONTHLY #1 vial traZODone HCL [Desyrel] 100 mg PO HS 30 Days tab [place]st Carbonate 600 mg PO BID 30 Days cap ARIPiprazole [Abilify] 15 mg PO DAILY 14 Days tablet busPIRone HCl [Buspar] 7.5 mg PO BID 30 Days tab Nicotine 21Mg/24Hr Patch [Habitrol] 1 patch TRANSDERM DAILY 30 Days patch Discontinued traZODone HCL [Desyrel] 100 mg PO HS busPIRone HCL [Buspar] 7.5 mg PO HS Discharge Medication List ARIPiprazole IM [Abilify Maintena] 400 mg IM QMONTHLY #1 vial 11/10/20 [Rx] ARIPiprazole [Abilify] 15 mg PO DAILY 14 Days tablet 11/10/20 [Rx] [place]st Carbonate 600 mg PO BID 30 Days cap 11/10/20 [Rx] Nicotine 21Mg/24Hr Patch [Habitrol] 1 patch TRANSDERM DAILY 30 Days patch 11/10/20 [Rx] busPIRone HCl [Buspar] 7.5 mg PO BID 30 Days tab 11/10/20 [Rx] traZODone HCL [Desyrel] 100 mg PO HS 30 Days tab 11/10/20 [Rx] Follow up Appointment(s)/Referral(s): Nonstaff,Physician [Primary Care Provider] - 1-2 days Activity/Diet/Wound Care/Special Instructions: Activity and diet as tolerated. Avoid the use of street drugs and alcohol. Take all medications as prescribed. When you are in need of refills on your medications please contact your medical provider and/or outpatient psychiatrist to have this done. Please go to scheduled outpatient appointment for aftercare treatment. If symptoms return or become worse, call the crisis line at and/or go to the nearest emergency room for evaluation. Discharge Disposition: HOME SELF-CARE
== END 2020-11-10 11:37 | disposition home or self-care (01) | DRG 885 ==
LOC: EC 15:57 → 3MHU 11-05 03:32
PROVIDERS: ADMIT Psychiatry & Neurology Psychiatry; ATTEND Psychiatry & Neurology Psychiatry
DX: F31.81 Bipolar II disorder (principal); R45.851 Suicidal ideations; F10.10 Alcohol abuse, uncomplicated; F17.210 Nicotine dependence, cigarettes, uncomplicated; F22 Delusional disorders; F41.9 Anxiety disorder, unspecified; G47.00 Insomnia, unspecified; J45.909 Unspecified asthma, uncomplicated; Z79.899 Other long term (current) drug therapy; Z87.828 Personal history of other (healed) physical injury and trauma; Z20.822 Contact with and (suspected) exposure to COVID-19
CPT/HCPCS: 80053; 80178; 80306; 82075; 83036; 84443; 85025; 87635; 99285

== ENCOUNTER 2020-11-22 12:05 | Emergency (ER) | payer OTHER ==
[2020-11-22 12:12] VITALS: BP 139/88; PULSE 97; TEMP 97.7
--- NOTE | 2020-11-22 12:45 | ED ---
General Adult HPI - General Chief complaint: Shortness of Breath Stated complaint: Asthma Time Seen by Provider: 11/22/20 12:10 Source: patient, RN notes reviewed, old records reviewed Mode of arrival: ambulatory Limitations: no limitations - History of Present Illness Initial comments: This is a 35-year-old male who presents emergency department with past medical history significant for asthma. Patient states he still smokes. Patient states he had an asthma attack at home and he used his mother's inhaler 2 and then he felt considerably better. His mother insisted he come to the hospital he checked out. Patient states he is not short of breath now he has no symptoms now whatsoever. Patient states he is afraid he may have an exacerbation later in the day and he is looking for some inhalers as possible. Patient denies any fever chills or cough. Patient denies any chest pain difficulty breathing or shortness of breath currently. Patient denies any abdominal pain patient denies any other symptoms at this time. - Related Data Previous Rx's Medication Instructions Recorded ARIPiprazole IM [Abilify Maintena] 400 mg IM QMONTHLY #1 vial 11/10/20 ARIPiprazole [Abilify] 15 mg PO DAILY 14 Days tablet 11/10/20 [place] Carbonate 600 mg PO BID 30 Days cap 11/10/20 Nicotine 21Mg/24Hr Patch [Habitrol] 1 patch TRANSDERM DAILY 30 Days 11/10/20 patch busPIRone HCl [Buspar] 7.5 mg PO BID 30 Days tab 11/10/20 traZODone HCL [Desyrel] 100 mg PO HS 30 Days tab 11/10/20 Albuterol Inhaler [Ventolin Hfa 2 puff INHALATION RT-QID #2 puff 11/22/20 Inhaler] predniSONE [Deltasone] 40 mg PO DAILY #8 tab 11/22/20 Allergies Allergy/AdvReac Type Severity Reaction Status Date / Time No Known Allergies Allergy Verified 11/22/20 12:12 Review of Systems ROS Statement: Those systems with pertinent positive or pertinent negative responses have been documented in the HPI. ROS Other: All systems not noted in ROS Statement are negative. Past Medical History Past Medical History: Asthma Additional Past Medical History / Comment(s): TBI History of Any Multi-Drug Resistant Organisms: None Reported Past Surgical History: No Surgical Hx Reported, Tonsillectomy Past Psychological History: Anxiety, Depression Smoking Status: Current every day smoker Past Alcohol Use History: None Reported Past Drug Use History: Marijuana - Past Family History Family Family Medical History: No Reported History General Exam - General Exam Comments Initial Comments: GENERAL: Patient is well-developed and well-nourished. Patient is nontoxic and well- hydrated and is in no acute distress. ENT: Neck is soft and supple. No significant lymphadenopathy is noted. Oropharynx is clear. Moist mucous membranes. Neck has full range of motion without eliciting any pain. EYES: The sclera were anicteric and conjunctiva were pink and moist. Extraocular move ments were intact and pupils were equal round and reactive to light. Eyelids were unremarkable. PULMONARY: Unlabored respirations. Good breath sounds bilaterally. No audible rales rhonchi or wheezing was noted. CARDIOVASCULAR: There is a regular rate and rhythm without any murmurs gallops or rubs. ABDOMEN: Soft and nontender with normal bowel sounds. SKIN: Skin is clear with no lesions or rashes and otherwise unremarkable. NEUROLOGIC: Patient is alert and oriented x3. Cranial nerves II through XII are grossly intact. Motor and sensory are also intact. Normal speech, volume and content. Symmetrical smile. MUSCULOSKELETAL: Normal extremities with adequate strength and full range of motion. LYMPHATICS: No significant lymphadenopathy is noted PSYCHIATRIC: Normal psychiatric evaluation. Limitations: no limitations Course Vital Signs 11/22/20 12:07 Temperature 97.7 F Pulse Rate 97 Respiratory 16 Rate Blood Pressure 139/88 O2 Sat by Pulse 100 Oximetry Medical Decision Making - Medical Decision Making Patient has no complaints currently and his lungs are clear. Disposition Clinical Impression: Acute asthma exacerbation Disposition: HOME SELF-CARE Condition: Good Prescriptions: predniSONE [Deltasone] 40 mg PO DAILY #8 tab Albuterol Inhaler [Ventolin Hfa Inhaler] 2 puff INHALATION RT-QID #2 puff Referrals: Nonstaff,Physician [Primary Care Provider] - 1-2 days Time of Disposition: 12:44
[2020-11-22 12:49] VITALS: RESP 18
== END 2020-11-22 12:52 | disposition home or self-care (01) ==
LOC: EC 12:05
DX: J45.901 Unspecified asthma with (acute) exacerbation (principal); F32.9 Major depressive disorder, single episode, unspecified; F41.9 Anxiety disorder, unspecified; F17.200 Nicotine dependence, unspecified, uncomplicated; F12.90 Cannabis use, unspecified, uncomplicated; Z79.51 Long term (current) use of inhaled steroids
CPT/HCPCS: 99283